=== PATIENT | male | born 1960 | race Caucasian/White ===

== ENCOUNTER 2021-08-29 07:20 | Inpatient (IN) | payer MEDICARE ==
[~2021-08-29] VITALS: Ht 172.7 cm; Wt 93.0 kg
[2021-08-29 07:51] LABS: BASOPHILS ABSOLUTE AUTO 0.07 K/mm3 (0.00-0.23); BASOPHILS PERCENT AUTO 0 % (0-2); EOSINOPHILS ABSOLUTE AUTO 0.16 K/mm3 (0.00-0.68); EOSINOPHILS PERCENT AUTO 1 % (0-6); Hematocrit 44.8 % (37.0-53.0); Hemoglobin 15.5 g/dL (13.5-17.5); IMMATURE GRAN PERCENT AUTO 1 % (0-1); LYMPHOCYTES PERCENT AUTO 24 % (21-46); MONOCYTES ABSOLUTE AUTO 0.97 K/mm3 (0.16-1.47); MONOCYTES PERCENT AUTO 6 % (4-13); Mean Corpuscular HGB 32.2 pg (26.0-34.0); Mean Corpuscular HGB Conc 34.6 g/dL (31.5-36.5); Mean Corpuscular Volume 93 fL (80-100); NEUTROPHILS ABSOLUTE AUTO 11.65 K/mm3 (1.96-9.15); NEUTROPHILS PERCENT AUTO 68 % (41-73); Platelet Count 293 K/mm3 (150-400); RDW Coefficient Variation 12.7 % (11.7-14.2); RDW Standard Deviation 43.7 fL (35.1-46.3); Red Blood Cell Count 4.82 M/mm3 (4.30-5.90); White Blood Cell Count 17.05 K/mm3 (4.00-11.30)
[2021-08-29 08:02] LABS: Prothrombin Time Results 10.5 Sec (9.7-11.5)
[2021-08-29] MEDS ORDERED: ATOR20 PO (08:03)
[2021-08-29] MEDS ORDERED: PERCOCET 10-321 EAC1 PO (08:04)
[2021-08-29] MEDS ORDERED: EUTHYROX50 MCG PO (08:05)
[2021-08-29 08:07] LABS: Alanine Aminotransfer (ALT/SGP 39 U/L (12-78); Albumin, Blood 3.8 g/dL (3.4-5.0); Albumin/Globulin Ratio 1.1 (0.8-1.8); Alk Phos 90 U/L (50-136); Anion Gap 10 mmol/L (6-16); Aspartate Aminotrans (AST/SGOT 22 U/L (12-37); Bilirubin, Total 0.3 mg/dL (0.1-1.0); Blood Urea Nitrogen 18 mg/dL (8-24); Bun/Creatinine Ratio 19.9 (12.0-20.0); CO2, Blood 22 mmol/L (21-32); Calcium, Blood 9.4 mg/dL (8.5-10.1); Chloride, Blood 101 mmol/L (98-108); Globulin, Blood 3.5 g/dL (2.2-4.0); Glomerular Filtration Rate >60 (60-); Glucose, Blood 395 mg/dL (70-99); Potassium, Blood 3.9 mmol/L (3.5-5.5); Sodium, Blood 133 mmol/L (136-145); Total Protein, Blood 7.3 g/dL (6.4-8.2); Troponin I 0.136 ng/mL (0.000-0.040)
[2021-08-29] MEDS ORDERED: METF500 PO (08:07)
[2021-08-29 08:21] LABS: CHOL/HDL RATIO 3.8; Cholesterol 150 mg/dL (50-200); HDL Cholesterol 39 mg/dL (>39); LDL/HDL RATIO 1.6; Low Density Lipoprotein Chol 62 mg/dL (0-110); Triglycerides 245 mg/dL (30-160); Very Low Density Lipoprot Chol 49 mg/dL (6-32)
--- NOTE | 2021-08-29 11:29 | NUR ---
Echocardiogram completed.
--- NOTE | 2021-08-29 14:05 | NUR ---
PATIENT ADMIT TO PCU FROM [facility] AT 0955. POST ANGIO TO RIGHT RADIAL SITE. ALERT AND ORIENTED X4. NEURO WNL. PERRLA. DENIES NUMBNESS/TINGLING. AT BASELINE WALKS WITH CANE AT TIMES. ABLE TO STAND AND USE URINAL IND. ON ROOM AIR, LUNGS SOUNDING CLEAR. TELE SHOWING SINUS RHYTHM WITH HR 80'S. DENIES CHEST PAIN/PRESSURE. VITAL SIGNS STABLE. DENIES ABDOMINAL PAIN/NAUSEA. EATING AND DRINKING WATER. SLEEPING ON AND OFF. ORIENTED TO ROOM/UNIT. RIGHT RADIAL SITE WITH TR BAND AND ARM BOARD IN PLACE. UPON ARRIVAL SOFT AND NON TENDER. 15 MIN POST ARRIVAL ON NEXT CHECK SMALL HEMATOMA FORMING ABOVE TR BAND. DR. CARRILLO CALLED AND IN TO ASSESS. ORDER TO WEAR WILLIAM BANDAGE FOR 30 MIN ON AND 10 MIN OFF X2 AND THEN TO LOOSLY WRAP ARM. HEMATOMA DECREASING BUT ARM STILL LOOKING SWOLLEN. ORDERS FROM DR. CARRILLO AT 1315 TO LEAVE WILLIAM WRAP ONE TIGHT FOR ONE HOUR AND THEN START TO DEFLATE TR BAND. CHECKING RIGHT RADIAL SITE AND TR BAND Q15 MIN. PATIENT SLEEPING ON AND OFF. NO DRAINAGE UNDER BAND. WILL CONTINUNE TO MONITOR.
--- NOTE | 2021-08-29 17:53 | NUR ---
SHIFT SUMMARY: PATIENT REMAINS ALERT AND ORIENTED X4. ON ROOM AIR. NO CHANGES IN TELE. SEE PREVIOUS NOTE. RIGHT RADIAL SITE WITH ARM BOARD AND WILLIAM WRAP IN PLACE. DR. CARRILLO IN TO ASSESS RADIAL SITE THIS EVENING. AWARE OF HEMATOMA AND ORDERS AT TIME TO KEEP WILLIAM WRAP ON TIGHT AND TR BAND ON FOR ONE MORE HOUR. TR BAND REMOVED AFTER ONE HOUR AND WILLIAM WRAP IN PLACE AFTER REMOVAL. TEGADERM DRESSING IN PLACE. NO DRAINAGE AT THIS TIME. WILL CONTINUE TO MONITOR AND REPORT OFF.
[2021-08-30 04:52] LABS: BASOPHILS ABSOLUTE AUTO 0.06 K/mm3 (0.00-0.23); BASOPHILS PERCENT AUTO 0 % (0-2); EOSINOPHILS PERCENT AUTO 2 % (0-6); Hemoglobin 15.6 g/dL (13.5-17.5); IMMATURE GRAN ABSOLUTE AUTO 0.06 K/mm3 (0.00-0.10); IMMATURE GRAN PERCENT AUTO 0 % (0-1); LYMPHOCYTES ABSOLUTE AUTO 3.31 K/mm3 (0.84-5.20); LYMPHOCYTES PERCENT AUTO 25 % (21-46); MONOCYTES ABSOLUTE AUTO 0.92 K/mm3 (0.16-1.47); MONOCYTES PERCENT AUTO 7 % (4-13); Mean Corpuscular HGB Conc 34.7 g/dL (31.5-36.5); Mean Corpuscular Volume 92 fL (80-100); Mean Platelet Volume 9.5 fL (9.1-12.4); NEUTROPHILS ABSOLUTE AUTO 8.81 K/mm3 (1.96-9.15); NEUTROPHILS PERCENT AUTO 66 % (41-73); Platelet Count 221 K/mm3 (150-400); RDW Coefficient Variation 12.8 % (11.7-14.2); RDW Standard Deviation 43.4 fL (35.1-46.3); Red Blood Cell Count 4.88 M/mm3 (4.30-5.90); White Blood Cell Count 13.36 K/mm3 (4.00-11.30)
[2021-08-30 05:08] LABS: Albumin, Blood 3.6 g/dL (3.4-5.0); Anion Gap 7 mmol/L (6-16); Blood Urea Nitrogen 15 mg/dL (8-24); Bun/Creatinine Ratio 19.4 (12.0-20.0); CO2, Blood 25 mmol/L (21-32); Calcium, Blood 8.9 mg/dL (8.5-10.1); Chloride, Blood 105 mmol/L (98-108); Creatinine, Blood 0.78 mg/dL (0.60-1.20); Glomerular Filtration Rate >60 (60-); Glucose, Blood 195 mg/dL (70-99); Sodium, Blood 137 mmol/L (136-145)
--- NOTE | 2021-08-30 05:31 | NUR ---
SHIFT SUMMARY PT ALERT AND ORIENTED X 4. HR STABLE. BP STABLE. NO CP OR PRESSURE. R RADIAL SITE HAS HEMATOMA, PHYSICIAN AWARE. ARM BOARD IN PLACE AND WILLIAM BANDAGE IN PLACE. PULSES STRONG. PT REPORTS MINIMAL PAIN. MEDICATED, SEE EMAR. PT IND IN ROOM. ABLE TO TURN SELF NEEDED FOR COMFORT. WILL CONT TO MONITOR UNTIL REPORT GIVEN TO NIGHTSHIFT RN.
[2021-08-30] MEDS ORDERED: TRAZ50 PO (11:55)
--- NOTE | 2021-08-30 14:19 | NUR ---
PT CURRENTLY TAKEN TO [facility] FOR FF-UP ANGIO.
[2021-08-30 14:34] LABS: Influenza A, PCR NEGATIVE (NEGATIVE); Influenza B, PCR NEGATIVE (NEGATIVE); Resp Syncytial Virus, PCR NEGATIVE (NEGATIVE); SARS-Cov-2 (COVID-19) PCR, MMC NEGATIVE (NEGATIVE)
--- NOTE | 2021-08-30 17:58 | NUR ---
PT SUMMARY: PT POST ANGIO WITH RIGHT GROIN ACCESS WITH CLOSURE DEVICE CHG DRESSING IN PLACE INTACT NO HEMATOMA NOTED AROUND THE SITE, PT TO REMAIN FLAT FOR THE NEXT COUPLE HOURS. PT DENIES ANY PAIN POST PROCEDURE, HAD ONE DOSE OF FENTANYL PRIOR TO PROCEDURE DUE TO BACK PAIN AND WAS EFFECTIVE. PT A&OX4, INDEPENDENT IN THE ROOM, VITALS REMAINED STABLE FOR THE SHIFT. RIGHT RADIAL ACCESS SITE INTACT BRUISING AROUND THE SITE NOTED NO OTHER ISSUES. LAD STENT PLACED THIS TIME. PT CURRENTLY EATING DINNER TOLERATING WELL. CALL LIGHTS IN REACH WILL REPORT TO ONCOMING SHIFT
--- NOTE | 2021-08-30 21:11 | NUR ---
UPDATE PT AMBULATORY BY [id number]. GROIN SITE WNL. PUSLES DISTAL TO GROIN SITE STRONG.
[2021-08-31 04:20] LABS: Albumin, Blood 3.5 g/dL (3.4-5.0); Anion Gap 8 mmol/L (6-16); Blood Urea Nitrogen 17 mg/dL (8-24); Bun/Creatinine Ratio 21.1 (12.0-20.0); CO2, Blood 25 mmol/L (21-32); Calcium, Blood 8.8 mg/dL (8.5-10.1); Chloride, Blood 106 mmol/L (98-108); Creatinine, Blood 0.81 mg/dL (0.60-1.20); Glomerular Filtration Rate >60 (60-); Glucose, Blood 167 mg/dL (70-99); Potassium, Blood 3.8 mmol/L (3.5-5.5); Sodium, Blood 139 mmol/L (136-145)
--- NOTE | 2021-08-31 05:41 | NUR ---
SHIFT SUMMARY PT ALERT AND ORIENTED X 4. HR STABLE. BP STABLE. OXYGEN SATURATION MAINTAINED ABOVE 92% ON RA. R RADIAL SITE WNL. R GROIN SITE HAS SMALL HEMATOMA, SOFT, DRESSING C/D/I. PULSES STRONG. PT REPORTS PAIN IN BACK, MEDICATED PER EMAR. PT TAKES TRAZADONE AT HOME FOR SLEEP. PHYSICIAN NOTIFIED, ORDERS GIVEN. SEE EMAR. PT IND IN ROOM. NO CP OR PRESSURE. WILL CONT TO MONITOR UNTIL REPORT GIVEN TO KARRI HOFFMAN.
[2021-08-31] MEDS ORDERED: ASPI81CH PO (10:30)
[2021-08-31] MEDS ORDERED: CLOP75 PO (10:30)
[2021-08-31] MEDS ORDERED: METO25ER PO (10:31)
--- NOTE | 2021-08-31 11:47 | NUR ---
DISCHARGE NOTE: PATIENT COMPLETELY UNDERSTOOD DISCHARGE INSTRUCTIONS, HAD NO QUESTIONS COMMENTS OR CONCERNS, AND ENDORSED TO WAITING OUTSIDE FOR RIDER. PATIENTS IV'S WERE REMOVED, AND MEDICATIONS ALREADY WERE SENT TO [facility] IN [place]. PATIENT AWARE, AND WILL ENSURE TIMELY MEDICATION MANAGMENT. EDUCATED THE IMPORTANCE OF MEDICATION ADHERENCE. PATIENT IN AGREEMENT. PATIENT WAS WALKED OUT TO ENSURE CORRECT EXIT. PATIENT DENIES CHEST PAIN OR DISCOMFORT.
== END 2021-08-31 11:41 | disposition home or self-care (01) | DRG 247 ==
LOC: ER 07:20 → PCU 08:10
PROVIDERS: Emergency Medicine; Internal Medicine Interventional Cardiology; Student in an Organized Health Care Education/Training Program; ADMIT Internal Medicine
PROC: 027034Z Dilation of Coronary Artery, One Artery with Drug-eluting Intraluminal Device, Percutaneous Approach (ICD-10-PCS; principal; 2021-08-29)
PROC: 4A023N7 Measurement of Cardiac Sampling and Pressure, Left Heart, Percutaneous Approach (ICD-10-PCS; 2021-08-29)
PROC: B2111ZZ Fluoroscopy of Multiple Coronary Arteries using Low Osmolar Contrast (ICD-10-PCS; 2021-08-29)
PROC: 027034Z Dilation of Coronary Artery, One Artery with Drug-eluting Intraluminal Device, Percutaneous Approach (ICD-10-PCS; 2021-08-30)
PROC: 4A023N7 Measurement of Cardiac Sampling and Pressure, Left Heart, Percutaneous Approach (ICD-10-PCS; 2021-08-30)
PROC: B2111ZZ Fluoroscopy of Multiple Coronary Arteries using Low Osmolar Contrast (ICD-10-PCS; 2021-08-30)
PROC: B240ZZ3 Ultrasonography of Single Coronary Artery, Intravascular (ICD-10-PCS; 2021-08-30)
PROC: 02F03ZZ Fragmentation in Coronary Artery, One Artery, Percutaneous Approach (ICD-10-PCS; 2021-08-30)
DX: I21.4 Non-ST elevation (NSTEMI) myocardial infarction (principal); Z20.822 Contact with and (suspected) exposure to COVID-19; I25.10 Atherosclerotic heart disease of native coronary artery without angina pectoris; E11.65 Type 2 diabetes mellitus with hyperglycemia; I10 Essential (primary) hypertension; E78.5 Hyperlipidemia, unspecified; E66.9 Obesity, unspecified; Z68.31 Body mass index [BMI] 31.0-31.9, adult; E03.9 Hypothyroidism, unspecified; G89.29 Other chronic pain; M54.9 Dorsalgia, unspecified; F17.210 Nicotine dependence, cigarettes, uncomplicated; Z98.890 Other specified postprocedural states; Z91.048 Other nonmedicinal substance allergy status; Z91.013 Allergy to seafood; Z79.84 Long term (current) use of oral hypoglycemic drugs; Z79.899 Other long term (current) drug therapy
CPT/HCPCS: 0241U; 36415; 71045; 76937; 80053; 80061; 80069; 82947; 83036; 84484; 85025; 85347; 85610; 85730; 86850; 86900; 86901; 92921; 92978; 93005; 93010; 93306; 93454; 93571; 96374; 99152; 99153; 99285-25; A9270; C1725; C1753; C1760; C1769; C1874; C1887; C1894; C9600; C9601; C9602; J1200; J1644; J1720; J1815; J2250; J3010; J7030; J7050; Q9967

== ENCOUNTER 2025-05-08 14:12 | Emergency (ER) | payer MEDICARE ==
[~2025-05-08] VITALS: Ht 175.3 cm; Wt 95.2 kg
[~2025-05-08 14:12] MED LIST: ASPI81CH PO; ATOR20 PO; CLOP75 PO; EUTHYROX50 MCG PO; METF500 PO; METO25ER PO; PERCOCET 10-321 EAC1 PO; TRAZ50 PO
[2025-05-08 15:28] LABS: BASOPHILS ABSOLUTE AUTO 0.04 K/mm3 (0.00-0.23); BASOPHILS PERCENT AUTO 0 % (0-2); EOSINOPHILS ABSOLUTE AUTO 0.17 K/mm3 (0.00-0.68); EOSINOPHILS PERCENT AUTO 1 % (0-6); Hematocrit 46.1 % (37.0-53.0); Hemoglobin 15.5 g/dL (13.5-17.5); IMMATURE GRAN ABSOLUTE AUTO 0.06 K/mm3 (0.00-0.10); IMMATURE GRAN PERCENT AUTO 0 % (0-1); LYMPHOCYTES ABSOLUTE AUTO 2.88 K/mm3 (0.84-5.20); LYMPHOCYTES PERCENT AUTO 19 % (21-46); MONOCYTES ABSOLUTE AUTO 0.93 K/mm3 (0.16-1.47); MONOCYTES PERCENT AUTO 6 % (4-13); Mean Corpuscular HGB Conc 33.6 g/dL (31.5-36.5); Mean Corpuscular Volume 95 fL (80-100); NEUTROPHILS ABSOLUTE AUTO 10.89 K/mm3 (1.96-9.15); NEUTROPHILS PERCENT AUTO 73 % (41-73); NRBC ABSOLUTE 0.00 K/mm3 (0.00-0.02); NRBC Auto 0.0 /100 WBC (0.0-0.2); Platelet Count 233 K/mm3 (150-400); RDW Coefficient Variation 13.0 % (11.7-14.2); RDW Standard Deviation 45.5 fL (35.1-46.3)
[2025-05-08 15:44] LABS: Alanine Aminotransfer (ALT/SGP 37.0 U/L (12-78); Albumin, Blood 3.8 g/dL (3.4-5.0); Albumin/Globulin Ratio 1.2 (0.8-1.8); Anion Gap 8.0 mmol/L (3-11); Aspartate Aminotrans (AST/SGOT 19.0 U/L (12-37); Bilirubin, Total 0.4 mg/dL (0.1-1.0); Blood Urea Nitrogen 18.0 mg/dL (8-24); CO2, Blood 30.0 mmol/L (21-32); Calcium, Blood 9.0 mg/dL (8.5-10.1); Chloride, Blood 103.0 mmol/L (98-108); Creatinine, Blood 1.19 mg/dL (0.60-1.20); Globulin, Blood 3.2 g/dL (2.2-4.0); Glucose, Blood 134.0 mg/dL (70-99); Potassium, Blood 4.2 mmol/L (3.5-5.5); Sodium, Blood 137.0 mmol/L (136-145); Total Protein, Blood 7.0 g/dL (6.4-8.2)
[2025-05-08 18:52] VITALS: BP 125/102
== END 2025-05-08 19:59 | disposition home or self-care (01) ==
LOC: ER 14:12
PROVIDERS: Physician Assistant
DX: R07.9 Chest pain, unspecified (principal); Z91.041 Radiographic dye allergy status; Z79.899 Other long term (current) drug therapy; Z91.013 Allergy to seafood; Z79.82 Long term (current) use of aspirin; Z79.84 Long term (current) use of oral hypoglycemic drugs; F17.200 Nicotine dependence, unspecified, uncomplicated
CPT/HCPCS: 71046; 80053; 83880; 84484; 85025; 93005; 93010; 99285-25; A9270